=== PATIENT | female | born 1950 | race Caucasian/White ===

== ENCOUNTER 2017-06-27 12:27 | Outpatient (CLI) | payer OTHER | END 2017-06-27 12:28 | disposition home or self-care (01) | LOC: BICMAMMO 12:27 | DX: Z12.31 Encounter for screening mammogram for malignant neoplasm of breast (principal); Z80.3 Family history of malignant neoplasm of breast | CPT/HCPCS: 77063; 77067 ==

== ENCOUNTER 2020-04-11 15:33 | Outpatient (CLI) | payer MEDICARE, OTHER ==
--- NOTE | 2020-04-11 16:30 | RAD ---
SI JOINTS: History: Low back pain. FINDINGS: SI joints are symmetric in appearance. No ankylosis or erosive type change. Some minimal arthritic ch roselyn noted. IMPRESSION: Essentially unremarkable SI joints. POS: [facility]
== END 2020-04-11 15:34 | disposition home or self-care (01) ==
LOC: BICRAD 15:33
PROVIDERS: ATTEND Internal Medicine Rheumatology
DX: M54.5 Low back pain (principal)
CPT/HCPCS: 72202

== ENCOUNTER 2020-04-18 15:05 | Outpatient (CLI) | payer OTHER ==
[2020-04-19 02:30] LABS: SARS-CoV-2 PCR by NAA Not Detected (NotDetected)
== END 2020-04-18 15:06 | disposition home or self-care (01) ==
LOC: LABBT 15:05
PROVIDERS: ATTEND Ophthalmology Retina Specialist
DX: Z20.822 Contact with and (suspected) exposure to COVID-19 (principal)
CPT/HCPCS: 87635; U0003; U0005

== ENCOUNTER 2020-04-21 08:35 | Day surgery (SDC) | payer OTHER ==
[2020-04-20 11:39] VITALS: BMI 23.2
[~2020-04-21 08:35] MED LIST: Famotidine/PF 20 mg/2ml Vial ONE; Fentanyl 100 MCG/2 ML VIAL ONE; Fluorouracil 100 MG, Enoxaparin Sodium 25 MG, EPINEPHrine 0.3 MG in Ophthalmic Irrigati... IRR SCH; Midazolam HCl 2 mg/2 ml Vial ONE
[2020-04-21] MEDS ORDERED: Cyclopentolate W/ Phenylephrin 40 DROP/2 ML BOT ONE (08:53)
[2020-04-21] MEDS ORDERED: Cyclopentolate 1% Opth Drop 2 ML BOT ONE (08:53)
[2020-04-21] MEDS ORDERED: Phenylephrine 2.5% Ophth Soln 5 ML BOT ONE (08:53)
[2020-04-21] MEDS ORDERED: PROPOFOL 200 MG/20 ML VIAL ONE (10:30)
[2020-04-21] MEDS ORDERED: ePHEDrine 50 MG/ML VIAL ONE (10:30)
[2020-04-21] MEDS ORDERED: Lidocaine 4% PF 5 ML AMP ONE (10:30)
[2020-04-21] MEDS ORDERED: Lidocaine 1% PF 5 ML VIAL ONE ×2 (10:30)
[2020-04-21] MEDS ORDERED: CEFAZOLIN 1 GM VIAL ONE (10:30)
[2020-04-21] MEDS ORDERED: PHENYLEPHRINE-NS 100 MCG/ML 10 ML SYRINGE ONE (10:30)
[2020-04-21] MEDS ORDERED: Ondansetron PF 4 MG/2 ML Vial ONE ×2 (10:30)
[2020-04-21] MEDS ORDERED: Indocyanine Green 25 MG/10 ML VIAL ONE (10:30)
[2020-04-21] MEDS ORDERED: Maxitrol 0.1% Opth Oint 3.5 GM TUBE ONE (10:30)
[2020-04-21] MEDS ORDERED: Triamcinolone 40 MG/ML VIAL ONE (10:30)
[2020-04-21] MEDS ORDERED: Metoclopramide HCl 10 MG/2 ML VIAL ONE (10:30)
== END 2020-04-21 13:10 | disposition home or self-care (01) ==
LOC: SDC 08:35
PROVIDERS: ATTEND Ophthalmology Retina Specialist
PROC: 08T53ZZ Resection of Left Vitreous, Percutaneous Approach (ICD-10-PCS; principal; 2020-04-21)
PROC: 08NF3ZZ Release Left Retina, Percutaneous Approach (ICD-10-PCS; principal; 2020-04-21)
DX: H35.342 Macular cyst, hole, or pseudohole, left eye (principal); I10 Essential (primary) hypertension; E78.5 Hyperlipidemia, unspecified; I25.2 Old myocardial infarction; I25.10 Atherosclerotic heart disease of native coronary artery without angina pectoris; M06.9 Rheumatoid arthritis, unspecified; F32.9 Major depressive disorder, single episode, unspecified; Z79.02 Long term (current) use of antithrombotics/antiplatelets; Z79.82 Long term (current) use of aspirin; Z79.899 Other long term (current) drug therapy; Z88.0 Allergy status to penicillin; Z88.5 Allergy status to narcotic agent
CPT/HCPCS: 67025; J0171; J0690; J1650; J2250; J2405; J2704; J2765; J3010; J3301; J3490; J9190; S0028

== ENCOUNTER 2022-05-22 15:44 | Outpatient (CLI) | payer MEDICARE, OTHER | END 2022-05-22 15:45 | disposition home or self-care (01) | LOC: RAD 15:44 | PROVIDERS: ATTEND Internal Medicine Rheumatology | DX: M05.79 Rheumatoid arthritis with rheumatoid factor of multiple sites without organ or systems involvement (principal); R53.83 Other fatigue; Z79.899 Other long term (current) drug therapy | CPT/HCPCS: 71046 ==

== ENCOUNTER 2023-01-21 09:19 | Outpatient (CLI) | payer MEDICARE, OTHER | END 2023-01-21 09:20 | disposition home or self-care (01) | LOC: BICRAD 09:19 | PROVIDERS: ATTEND Internal Medicine Rheumatology | DX: M06.09 Rheumatoid arthritis without rheumatoid factor, multiple sites (principal); M47.812 Spondylosis without myelopathy or radiculopathy, cervical region; M43.16 Spondylolisthesis, lumbar region; M47.816 Spondylosis without myelopathy or radiculopathy, lumbar region; M24.674 Ankylosis, right foot; M19.071 Primary osteoarthritis, right ankle and foot; M19.072 Primary osteoarthritis, left ankle and foot | CPT/HCPCS: 72050; 72100 ==